=== PATIENT | female | born 1950 | race Caucasian/White ===

== ENCOUNTER → 2017-10-01 | Outpatient (CLI) | payer MEDICARE, OTHER ==
[~2017-10-01] VITALS: Ht 160 cm; Wt 54.0 kg
[~2017-10-01] MED LIST: CATHETER FLUSH 10 ML SYR IVP PRN; GADOBUTROL 7.5 MMOL/7.5 ML (GADAVIST) VIAL IV ONE; IOHEXOL 300 MG/ML 30 ML (OMNIPAQUE 300) VIAL IV ONE; LIDOCAINE 1% INJ 20 ML (XYLOCAINE) VIAL INJ ONE; LIDOCAINE 1% INJ 50 ML (XYLOCAINE) VIAL ONE
[2017-10-01 13:40] VITALS: BP 114/84
[2017-10-01 14:00] VITALS: BP 118/68
--- NOTE | 2017-10-01 15:10 | Diagnostic Imaging Report ---
MRI RT UPPER EXT JOINT WITH TECHNIQUE: Multiplanar, multisequence MR imaging of the right shoulder was performed after direct intra-articular contrast administration. COMPARISON: None available. INDICATION: Right shoulder pain for one month. FINDINGS: Rotator cuff: No high-grade partial or full-thickness rotator cuff tear. Supraspinatus and infraspinatus tendinopathy is present with no superimposed tearing. Subscapularis is normal. No muscle atrophy. Glenoid labrum and biceps: There is a nondisplaced tear in the superior labrum which propagates into the intracapsular segment of the long head of the biceps as an interstitial split tear. The extracapsular portion of long head of the biceps is in good position. Bones and cartilage: Humeral head is normal in morphology without fracture or focal osseous lesion. No glenohumeral chondromalacia. The acromioclavicular joint is normal in alignment without significant degenerative change. Soft tissues: Glenohumeral joint is well distended with intra-articular contrast and there is no proliferative synovitis or loose body. No MRI findings to suggest adhesive capsulitis. No fluid or inflammatory like signal within the subacromial/subdeltoid space to indicate bursitis. IMPRESSION: 1. Nondisplaced tear of the superior glenoid labrum which propagates into the intracapsular segment of the long head of the biceps as an interstitial tear. The biceps anchor remains intact. 2. No rotator cuff tear. Tendinopathy of the supraspinatus and infraspinatus is present. Dictated by: Dictated on workstation # [id number]
--- NOTE | 2017-10-01 17:05 | Diagnostic Imaging Report ---
INDICATION: Right shoulder pain. FINDINGS: Patient was brought to the procedure room, placed on the table in the supine position. The right shoulder was prepped and draped in the usual sterile fashion. A small amount of 1% lidocaine was utilized for local anesthesia. A 21-gauge needle was advanced into the right shoulder and the rotator interval. A 15 mL solution of iodinated contrast, normal saline, and gadolinium was injected under fluoroscopic observation. The needle was withdrawn and hemostasis was obtained using manual compression. 56 seconds of fluoroscopic time was utilized. Two images were obtained demonstrating intracapsular contrast. There is some contrast in the subacromial subdeltoid bursa, consistent with rotator cuff tear. IMPRESSION: Right shoulder injection for MRI, using fluoroscopic assistance. Dictated by: Dictated on workstation # [id number]
== END ==
LOC: RAD 13:04
PROVIDERS: ATTEND Nurse Practitioner Family
DX: S43.491A Other sprain of right shoulder joint, initial encounter (principal); M75.81 Other shoulder lesions, right shoulder
CPT/HCPCS: 23350; 73040; 73222